=== PATIENT | female | born 2005 | race Caucasian/White ===

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

== ENCOUNTER 2023-05-21 21:43 | Emergency (ER) | payer OTHER, MEDICAID ==
[~2023-05-21] VITALS: Ht 160 cm; Wt 68.0 kg
[2023-05-21 21:54] VITALS: BP 137/80; PULSE 89; RESP 18; O2SAT 95
[2023-05-21] MEDS ORDERED: NEOM0.1O7 OP ×3 (23:27→23:28)
== END 2023-05-21 23:01 | disposition home or self-care (01) ==
LOC: ER 21:48
DX: H10.9 Unspecified conjunctivitis (principal); F12.90 Cannabis use, unspecified, uncomplicated